=== PATIENT | male | born 1995 | race Caucasian/White ===

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

== ENCOUNTER 2018-07-05 09:51 | Day surgery (SDC) | payer BC, OTHER ==
[2018-07-05] MEDS ORDERED: fentaNYL 100 MCG/2 ML SDV ONE (10:35)
[2018-07-05] MEDS ORDERED: Propofol 200 MG/20 ML SDV ONE (10:35)
[2018-07-05] MEDS ORDERED: Midazolam 1 MG/ML 2 ML SDV ONE (10:36)
[2018-07-05] MEDS ORDERED: Lidocaine 0.5% 50 ML SDV ONE (10:37)
[2018-07-05] MEDS ORDERED: Dextrose 5%-Lactated Ringers 1,000 ML IV SCH (11:15)
[2018-07-05 12:39] VITALS: BP 143/72
--- NOTE | 2018-07-05 15:18 | OR ---
DATE OF PROCEDURE: 07/05/2018 PREOPERATIVE DIAGNOSIS: Right dorsal wrist ganglion cyst. POSTOPERATIVE DIAGNOSIS: Right dorsal wrist ganglion cyst. PROCEDURE: Excision of right dorsal wrist ganglion cyst. SURGEON: Karl Hatch MD ANESTHESIA: Right [place] block. INDICATION: This 23-year-old white male has a very small mass in the dorsum of his right wrist. This is tender, it bothers him. He has used cold treatment and has had this aspirated to no effect. He has failed nonsurgical management and requests that it be excised. I counseled him for excision of his right dorsal wrist ganglion cyst, and he gave his informed consent to proceed. He is left-handed. PROCEDURE IN DETAIL: After adequate right upper extremity [place] block anesthesia was obtained, the right upper extremity was prepped and draped in usual sterile fashion. Time- out was held. The previously marked site of the ganglion cyst was opened with a small vertical incision. This was carried deep down to the cyst bluntly and sharply. The cyst was excised. We disrupted the joint capsule in this area to try to prevent recurrence. All looked well. The incision was then closed with a running stitch of 5-0 Prolene. A bulky hand dressing was applied. The tourniquet was cycled down, and he was brought from the operating room in good condition, having tolerated the procedure well. Karl Hatch MD /[id number]
== END 2018-07-05 12:40 | disposition home or self-care (01) ==
LOC: JP.SDS 09:51 → EDSTATUS 12:00 → JP.SDS 12:40
PROVIDERS: ATTEND Surgery
DX: M67.431 Ganglion, right wrist (principal); F32.9 Major depressive disorder, single episode, unspecified; Z91.048 Other nonmedicinal substance allergy status
CPT/HCPCS: 25111; 88304; J2250; J2704; J3010; J7042